=== PATIENT | male | born 1945 | race Caucasian/White ===

== ENCOUNTER 2016-11-15 20:42 | Emergency (ER) | payer OTHER ==
[~2016-11-15] VITALS: Ht 182.9 cm; Wt 77.2 kg
[2016-11-15 20:45] VITALS: Ht 182.9 cm; Wt 77.2 kg
--- NOTE | 2016-11-15 21:13 | ERD ---
ER Documentation Chief Complaint Date/Time DATE: 11/15/16 TIME: 21:03 Chief Complaint right eye pain, unknown what is in eye. +watery discharge HPI 71-year-old male presents here in emergency department for complaints of right eye discomfort and watery eyes, patient has history of allergies, was working in the yard, had dirt in his hands, started to rub his right eye, something when inside his right eye. Patient is now tearing on the right eye. He describes the pain as sharp pain 6/10 scale, denies any eye discharge. Patient denies any vision changes. ROS All systems reviewed and are negative except as per history of present illness. Medications Home Meds Active Scripts Tramadol HCl (Tramadol HCl) 50 Mg Tablet, 50 MG PO Q6 for SEVERE PAIN LEVEL 7-10 , #20 TAB Prov:KELSY CALIXTO NP 11/15/16 Moxifloxacin Hcl* (Vigamox*) 0.5% - 3 Ml Opht, 1 DROP RIGHT EYE TID for 7 Days, EA Prov:KELSY CALIXTO RECREATION AIDE 11/15/16 Reported Medications [none] Unknown Strength No Conflict Check 11/15/16 Allergies Allergies: Coded Allergies: No Known Allergy (Unverified , 11/15/16) PMhx/Soc Medical and Surgical Hx: pt denies Medical Hx, pt denies Surgical Hx FmHx Family History: No coronary disease, No diabetes, No other Physical Exam Vitals Vital Signs Date Time Temp Pulse Resp B/P Pulse Ox O2 Delivery O2 Flow Rate FiO2 11/15/16 20:45 98.7 72 18 165/81 97 Physical Exam GENERAL: The patient is well developed and appropriate for usual state of health, in no apparent distress. HEENT: Atraumatic. Ears: Normal tympanic membrane, no erythema or bulging. No ear canal swelling. No ear discharge. Nose: normal nasal turbinates, no erythema or swelling. Normal nasal discharge. Throat: oropharynx clear. No tonsillar swelling or tonsillar exudates. No lymphadenopathy. CHEST: Clear to auscultation bilaterally. There are no rales, wheezes or rhonchi. HEART: Regular rate and rhythm. No murmurs, clicks, rubs or gallops. No S3 or S4. ABDOMEN: Soft, nontender and nondistended. Good bowel sounds. No rebound or guarding. No gross peritonitis. No gross organomegaly or masses. No White sign or McBurney point tenderness. BACK: No midline or flank tenderness. EXTREMITIES: Equal pulses bilaterally. There is no peripheral clubbing, cyanosis or edema. No focal swelling or erythema. Full range of motion. Grossly neurovascularly intact. NEURO: Alert and oriented. Cranial nerves 2-12 intact. Motor strength in all 4 extremities with 5/5 strength. Sensation grossly intact. Normal speech and gait. SKIN: There is no apparent rash or petechia. The skin is warm and dry. HEMATOLOGIC AND LYMPHATIC: There is no evidence of excessive bruising or lymphedema. No gross cervical, axillary, or inguinal lymphadenopathy. Results 24 hrs Current Medications Medications (Trade) Dose Ordered Sig/Marilin Route PRN Reason Start Time Stop Time Status Last Admin Dose Admin Tetracaine HCl (Tetracaine 0.5% Steri-Unit Halle) 1 drop ONCE ONCE RIGHT EYE 11/15/16 21:30 11/15/16 21:31 DC Fluorescein Sodium (Cyoyl-M-Tqfez) 1 strip ONCE ONCE RIGHT EYE 11/15/16 21:30 11/15/16 21:31 DC Irrigating Solution (Eye Wash) 1 applic ONCE ONCE RIGHT EYE 11/15/16 21:30 11/15/16 21:31 DC 11/15/16 21:39 Procedure Note: After obtaining informed consent, the right eye was numbed using tetracaine ophthalmic solution and was stained using fluorescein dye. After staining the eye, A Wood's lamp was used to evaluate the eye. There is no foreign body noted in the eye. No corneal abrasions noted. Noted some conjunctival abrasion Patient tolerated procedure well. After procedure, the right eye was washed and lavaged with an eyewash. Patient tolerated procedure well. Procedures/MDM Medical decision making: Patient symptoms suspect is consistent with a conjunctival abrasion. No visualized foreign body. Patient's eye was lavaged here in emergency department, patient was given prescription for tramadol and Vigamox, is advised to see an eye doctor within 2-3 days for further evaluation of symptoms. Patient was advised to avoid rubbing the eye. Patient was advised to return to emergency department for any worsening symptoms. Disposition: Home. Stable. Departure Diagnosis: Primary Impression: Conjunctival abrasion Encounter type: initial encounter Laterality: right Qualified Code: S05.01XA - Conjunctival abrasion, right, initial encounter Condition: Stable KELSY CALIXTO NP Nov 15, 2016 21:13
[2016-11-15] MEDS ORDERED: OPHTHALMIC IRRIG SOLUTION 120 ML RIGHT EYE ONE (21:30)
[2016-11-15] MEDS ORDERED: FLUORESCEIN STRIP RIGHT EYE ONE (21:30)
[2016-11-15] MEDS ORDERED: TETRACAINE 0.5% 4 ML OPH RIGHT EYE ONE (21:30)
[2016-11-15] MEDS ORDERED: VIGA RIGHT EYE (21:46)
[2016-11-15] MEDS ORDERED: TRAM50TA2 PO (21:46)
[2016-11-15 21:52] VITALS: BP 151/85; PULSE 65; RESP 18
== END 2016-11-15 21:52 | disposition home or self-care (01) ==
LOC: FTE 20:42
DX: S05.01XA Injury of conjunctiva and corneal abrasion without foreign body, right eye, initial encounter (principal); X58.XXXA Exposure to other specified factors, initial encounter; Y92.9 Unspecified place or not applicable
CPT/HCPCS: 99284